=== PATIENT | female | born 1955 | race Caucasian/White ===

== ENCOUNTER 2019-11-02 14:40 | Emergency (ER) | payer MEDICARE, OTHER ==
--- NOTE | 2019-11-02 15:18 | ER Document Report ---
ED Medical Screen (RME) - General Chief Complaint: Facial Droop Stated Complaint: LEFT FACIAL DROOP,NUMBNESS Time Seen by Provider: 11/02/19 15:14 Mode of Arrival: Wheelchair Information source: Patient Notes: 63-year-old female presented to ED for complaint of left-sided facial droop. She states she is a diabetic hypothyroid cholesterol and blood pressure but does not take any of her medicines. She states she did have a stroke with left-sided weakness several years ago but she did not go to the doctor. She states she does not go to the doctor now. She states she does not take medicines for any of her conditions. Patient is alert oriented respirations regular and unlabored. 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 She is not able to move the left side of her face. 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 I will do blood work and urine on her because she does not take medications for any of her chronic ailments. States the facial droop started 3 days ago. I have greeted and performed a rapid initial assessment of this patient. A comprehensive ED assessment and evaluation of the patient, analysis of test results and completion of medical decision making process will be conducted by an additional ED providers. - Related Data Allergies/Adverse Reactions: No Known Allergies Allergy (Unverified 11/02/19 15:05) Past Medical History - Social History Chew tobacco use (# tins/day): No Frequency of alcohol use: None Drug Abuse: None Physical Exam - Vital signs Vitals: Temp 98.5 F 11/02/19 15:06 Course - Vital Signs Vital signs: Temp Pulse Resp BP Pulse Ox 98.5 F 70 16 149/79 H 93 11/02/19 15:06 11/02/19 15:13 11/02/19 15:13 11/02/19 15:13 11/02/19 15:13
[2019-11-02 15:48] LABS: ABSOLUTE BASOPHILS # (AUTO) 0.1 10^3/uL (0.0-0.2); ABSOLUTE EOSINOPHILS # (AUTO) 0.1 10^3/uL (0.0-0.6); ABSOLUTE MONOCYTES (AUTO) 0.7 10^3/uL (0.1-1.4); ABSOLUTE NEUT (AUTO) 6.7 10^3/uL (1.7-8.2); BASOPHILS % (AUTO) 0.7 % (0-2); EOSINOPHILS % (AUTO) 0.8 % (0-6); HEMATOCRIT 39.2 % (36.0-47.0); HEMOGLOBIN 14.1 g/dL (12.0-15.5); MEAN CORPUSCULAR HEMOGLOBIN 31.6 pg (27.0-33.4); MEAN CORPUSCULAR HGB CONC 36.1 g/dL (32.0-36.0); MEAN CORPUSCULAR VOLUME 88 fl (80-97); MONOCYTES % (AUTO) 7.1 % (3-13); PLATELET COUNT 234 10^3/uL (150-450); RED BLOOD COUNT 4.48 10^6/uL (3.72-5.28); RED CELL DISTRIBUTION WIDTH 14.4 % (11.5-14.0); SEGMENTED NEUTROPHILS % (AUTO) 70.4 % (42-78); TOTAL CELLS COUNTED % (AUTO) 100 %; WHITE BLOOD COUNT 9.5 10^3/uL (4.0-10.5)
[2019-11-02 15:52] LABS: VENOUS BLOOD BASE EXCESS -0.5 mmol/L; VENOUS BLOOD HCO3 24.3 mmol/L (20-32); VENOUS BLOOD PCO2 40.6 mmHg (35-63); VENOUS BLOOD PH 7.4 (7.30-7.42)
[2019-11-02] MEDS ORDERED: VALACYCLOVIR HCL 500 MG TABLET PO ONE (16:27)
[2019-11-02] MEDS ORDERED: PREDNISONE 20 MG TABLET PO ONE (16:28)
--- NOTE | 2019-11-02 16:36 | ER Document Report ---
ED General - General Chief Complaint: Facial Droop Stated Complaint: LEFT FACIAL DROOP,NUMBNESS Time Seen by Provider: 11/02/19 15:14 Primary Care Provider: PRASHANTH OSEI MD [ACTIVE STAFF] - Follow up as needed Mode of Arrival: Wheelchair Notes: HPI: Patient is a 63-year-old female who presents today stating she felt some facial weakness yesterday when eating lunch. Patient denies any headache, neck pain, falls, trauma, chest pain, abdominal pain, weakness or numbness to the arms or legs. She states she believes she had a stroke 3 years ago when she had a transient 10-minute episode of not being able to move the left side of her body. She did not go to the ER and did not have an evaluation. She has had no weakness since that time. ROS: See HPI All other review of systems reviewed and otherwise negative Reviewed vital signs and nursing note as charted by RN. PHYSICAL EXAM: CONSTITUTIONAL: Alert and oriented and responds appropriately to questions. Well-appearing; well-nourished HEAD: Normocephalic; atraumatic EYES: PERRL; full extraocular range of motion ENT: Normal nose; no rhinorrhea; moist mucous membranes; no external auditory canal or TM lesions present NECK: Supple without meningismus; no carotid bruit; non-tender; no cervical lymphadenopathy, no masses CARD: Regular rate and rhythm; no murmurs; symmetric distal pulses RESP: Normal chest excursion without splinting or tachypnea; breath sounds clear and equal bilaterally; no wheezes, no rhonchi, no rales ABD/GI: Normal bowel sounds; elevated BMI; soft, non-tender; no palpable organomegaly or masses BACK: The back appears normal and is non-tender to palpation EXT: Normal ROM in all joints; non-tender to palpation; no edema SKIN: No acute lesions noted NEURO: CN II through XII are intact other than the 7th cranial nerve. Patient has no movement of the left side of the face including the inability to raise her left eyebrow or close her left eye completely. She has full extraocular range of motion with no 6 nerve palsy PSYCH: The patient's mood and manner are appropriate. Grooming and personal hygiene are appropriate. - Related Data Allergies/Adverse Reactions: No Known Allergies Allergy (Unverified 11/02/19 15:05) Past Medical History - General Information source: Patient - Social History Smoking Status: Never Smoker Chew tobacco use (# tins/day): No Frequency of alcohol use: None Drug Abuse: None Family History: Reviewed & Not Pertinent Patient has homicidal ideation: No Physical Exam - Vital signs Vitals: Temp 98.5 F 11/02/19 15:06 Course - Re-evaluation Re-evalutation: Given the history and physical examination I am concerned about the possibility of Tavarez's palsy. Patient has a [id number]-mstwqlfgh diabetic. I will provide a dose of valacyclovir and prednisone. Laboratory values were ordered in triage. 11/02/19 16:32 No change in exam. Given the above history and physical I do believe this is Tavarez's palsy. I do not believe that the patient is a TPA candidate. 11/02/19 17:21 Imaging and labs as recorded. No change in exam. Patient understands the importance of strict return precautions and follow-up with the primary care rebecca cavazos as well as taking her diabetic medications and refraining from high sugar containing foods. - Vital Signs Vital signs: Temp Pulse Resp BP Pulse Ox 98.5 F 70 16 149/79 H 93 11/02/19 15:06 11/02/19 15:13 11/02/19 15:13 11/02/19 15:13 11/02/19 15:13 - Laboratory Result Diagrams: 11/02/19 15:30 11/02/19 16:45 Laboratory results interpreted by me: 11/02/19 11/02/19 11/02/19 15:30 16:27 16:45 MCHC 36.1 H RDW 14.4 H Sodium 133.1 L Glucose 192 H Urine Protein 30 H Urine Glucose (UA) >=500 H Discharge - Discharge Clinical Impression: Tavarez's palsy Condition: Good Disposition: HOME, SELF-CARE Additional Instructions: Come back immediately for any increased facial weakness, difficulty breathing or swallowing, weakness of the arms or legs, pain, or any other acute problems. Please make sure that you take the steroids, antibiotics, eyedrops, and erythromycin eye ointment as prescribed. Please make sure that she follow-up with your primary care physician for blood glucose evaluations and possibly ophthalmology for left eye examination. Prescriptions: Erythromycin Base [Erythromycin Oph 1 Gm Oint Ud] 1 applic TOP QHS 10 Days #1 tube Dextran 70/Hypromellose/Pf [Artificial Tears Drops] 1 each OP 5XD 10 Days #1 droperette Prednisone [Deltasone 20 mg Tablet] 3 tab PO DAILY 6 Days #18 tablet Valacyclovir HCl [Valacyclovir] 1,000 mg PO BID 7 Days #14 tablet Referrals: PRASHANTH OSEI MD [ACTIVE STAFF] - Follow up as needed
--- NOTE | 2019-11-02 17:11 | RADIOLOGY REPORT (SQ) ---
EXAM DESCRIPTION: CT HEAD WITHOUT IMAGES COMPLETED DATE/TIME: 11/02/2019 5:00 pm REASON FOR STUDY: 10; left facial paralysis most likely Tavarez's palsy COMPARISON: None. TECHNIQUE: Axial images acquired through the brain without intravenous contrast. Images reviewed wi th bone, brain and subdural windows. Additional sagittal and coronal reconstructions were generated. Images stored on PACS. All CT scanners at this facility use dose modulation, iterative reconstruction, and/or weight based d osing when appropriate to reduce radiation dose to as low as reasonably achievable (ALARA). [facility]: Dose Right [facility]: CareDose [facility]: Dose Right [facility]: Teradose 4D [facility]: Smart [employer] RADIATION DOSE: CT Rad equipment meets quality standard of care and radiation dose reduction techniq ues were employed. CTDIvol: 53.2 mGy. DLP: 937 mGy-cm. mGy. LIMITATIONS: None. FINDINGS: VENTRICLES: Normal size and contour. CEREBRUM: No masses. No hemorrhage. No midline shift. No evidence for acute infarction. Normal gra y/white matter differentiation. No areas of low density in the white matter. CEREBELLUM: No masses. No hemorrhage. No alteration of density. No evidence for acute infarction. EXTRAAXIAL SPACES: No fluid collections. No masses. ORBITS AND GLOBE: No intra- or extraconal masses. Normal contour of globe without masses. CALVARIUM: No fracture. PARANASAL SINUSES: No fluid or mucosal thickening. SOFT TISSUES: No mass or hematoma. OTHER: No other significant finding. IMPRESSION: NORMAL BRAIN CT WITHOUT CONTRAST. EVIDENCE OF ACUTE STROKE: NO. COMMENT: Quality ID # [id number]: Final reports with documentation of one or more dose reduction techniques (e.g., Automated exposure control, adjustment of the mA and/or kV according to patient size, use of iterative reconstruction technique) TECHNICAL DOCUMENTATION: JOB ID: [id number] 2010 [employer]- All Rights Reserved Reading location - IP/workstation name: [email or web address]
[2019-11-02 17:15] LABS: ALBUMIN 3.6 g/dL (3.5-5.0); ALKALINE PHOSPHATASE 95 U/L (38-126); ANION GAP 6 (5-19); ASPARTATE AMINO TRANSFERASE 26 U/L (14-36); BILIRUBIN,TOTAL 0.9 mg/dL (0.2-1.3); BLOOD UREA NITROGEN 16 mg/dL (7-20); CALCIUM 8.8 mg/dL (8.4-10.2); CARBON DIOXIDE 24 mmol/L (22-30); CHLORIDE 103 mmol/L (98-107); GLUCOSE 192 mg/dL (75-110); POTASSIUM 4.6 mmol/L (3.6-5.0); TOTAL PROTEIN 7.3 g/dL (6.3-8.2)
[2019-11-02 17:15] LABS: APPEARANCE,URINE SLIGHTLY-CLOUDY; BILIRUBIN,URINE NEGATIVE (NEGATIVE); COLOR,URINE YELLOW; GLUCOSE, URINE >=500 mg/dL (NEGATIVE); KETONES,URINE NEGATIVE (NEGATIVE); LEUKOCYTE ESTERASE,URINE NEGATIVE (NEGATIVE); NITRITE,URINE NEGATIVE (NEGATIVE); PROTEIN,URINE 30 mg/dL (NEGATIVE); URINE SPECIFIC GRAVITY 1.022; UROBILINOGEN,URINE NEGATIVE mg/dL (<2.0)
[2019-11-02 17:39] VITALS: BP 142/78
== END 2019-11-02 17:39 | disposition home or self-care (01) ==
LOC: ER 14:40
DX: G51.0 Bell's palsy (principal); R20.0 Anesthesia of skin
CPT/HCPCS: 99284; 36415; 83690; 85025; 80053; 81001; 82803; 70450; A9270 ×2; J7512